=== PATIENT | female | born 1985 | race Caucasian/White ===

== ENCOUNTER 2018-12-09 17:41 | Emergency (ER) | payer OTHER, SELFPAY ==
[2018-12-09 17:42] VITALS: BP 140/94; PULSE 92; RESP 18; TEMP 36.9; O2SAT 99
--- NOTE | 2018-12-09 18:09 | ED.EYEPROB ---
HPI - Eye Problem General Chief complaint: Eye Problems Stated complaint: RT EYE PAIN PLUGGED Time Seen by Provider: 12/09/18 17:52 Source: patient and family Mode of arrival: ambulatory Limitations: no limitations History of Present Illness HPI Narrative: 33-year-old female nonsmoker with extensive history of clogged tear duct presents to the emergency department for help in managing this current episode. The patient has had annual episodes of clogged tear ducts over the past 12 years and had previously been managed by an career development specialist in [place]. On a few occasions she has required the flushing of the duct by the specialist as well as antibiotics but this time around her symptoms do not seem to be improving. They have been present for the past week or so. She was seen and evaluated in the emergency department at [facility] and had attempts at massaged and instructions to use warm compresses and was prescribed 1st amoxicillin and then Augmentin. She was then seen as an outpatient by Ophthalmology in [place] whom said there was nothing they could do to help her. She presents here stating that it has never lasted this long and she just needs some help. She has minimal tearing in the right eye but denies any visual change. She states it hurts anterior to her right eye with extraocular motion and denies over and over again that it hurts behind her eye MD chief complaint: eye pain Onset (ago): day(s) Onset description: gradual Duration: constant Location: right eye Place: home Mechanism: none Severity: mild Severity scale (1-10): 5 If Pain, Quality: aching Associated symptoms: none Treatments Prior to Arrival: none Related Data Patient tetanus UTD: Yes Home Medications Medication Instructions Recorded Confirmed [id number]-[id number] 1 tab PO PRN PRN #0 08/15/16 [Excedrin Migraine] ibuprofen 200 mg PO PRN PRN #0 08/15/16 [dontae-seltzer] #0 11/17/16 guaifenesin [Mucinex] 1,200 mg PO Q12HP PRN #0 11/17/16 Previous Rx's Medication Instructions Recorded amoxicillin-pot clavulanate 875 mg PO BID #20 tab 11/17/16 [Augmentin] codeine-guaifenesin 5 ml PO QHS #60 ml 11/17/16 hydrocodone-acetaminophen 1 tab PO Q4-6H PRN #10 tab 12/09/18 Allergies Allergy/AdvReac Type Severity Reaction Status Date / Time No Known Drug Allergies Allergy Verified 12/09/18 18:39 Review of Systems Constitutional Denies chills, Denies fever(s), Denies lethargy and Denies weakness Eyes Denies change in vision, Denies eye discharge, Denies irritation, Denies loss of vision and Reports eye pain ENT Ears, Nose, Mouth, and Throat: Denies change in voice, Denies neck pain and Denies sore throat Cardiovascular Denies chest pain, Denies irregular heart rhythm, Denies lightheadedness, Denies palpitations, Denies dyspnea, Denies dyspnea on exertion and Denies orthopnea Respiratory Denies cough, Denies dyspnea, Denies dyspnea on exertion and Denies wheezing Gastrointestinal Gastrointestinal: Denies abdominal pain, Denies change in bowel habits, Denies diarrhea, Denies nausea and Denies vomiting Genitourinary Denies hematuria, Denies flank pain, Denies urinary incontinence and Denies urinary urgency Musculoskeletal Denies neck pain Integumentary/Breasts Denies pruritus, Denies erythema, Denies rash and Denies wounds Neurologic Denies confusion, Denies loss of vision and Denies weakness Psychiatric Denies anxiety, Denies confusion, Denies depression, Denies homicidal ideation and Denies suicidal ideation Endocrine Denies palpitations Hematologic/Lymphatic Denies easy bruising Allergic/Immunologic Denies wheezing PFSH Social History Smoking Status: Never smoker Social History Smoking Status: Never smoker Exam Narrative Exam Narrative: GEN: 33-year-old female obviously uncomfortable, and frustrated, tearful EYES: Pupils are equal, round, and reactive to light and accommodation. Extraoccular muscles are intact bilaterally. There is no subconjunctival hemorrhage or exudate. There is the redness, tenderness and mild swelling of her right tear duct and very minimal involvement the medial aspect of the upper lid. There is no drainage noted. Patient has full extraocular motion and repeatedly states she has no pain behind her eye with extraocular motion CHEST: Lungs are clear to auscultation bilaterally and free of wheezes, rales, or rhonchi. Heart rate is regular rhythm, there are no murmurs, clicks, rubs, or gallops. There is no chest wall tenderness. ABD: Abdomen is soft and nontender. There is no guarding or rebound. Bowel sounds are normal in all 4 quadrants. There is no mass or organomegaly. EXT: Full painless ROM of all extremities with no loss of sensation or strength. SKIN: Warm, pink, and dry. No erythema or rash Initial Vital Signs Initial Vital Signs: Vital Signs Temperature 98.5 F 12/09/18 17:42 Pulse Rate 92 H 12/09/18 17:42 Respiratory Rate 18 12/09/18 17:42 Blood Pressure 140/94 H 12/09/18 17:42 Pulse Oximetry 99 12/09/18 17:42 Course Reevaluation(s) Reevaluation #1: Had extensive discussion with this patient about the emergency department approach to this being warm compresses, pain control and antibiotics with Ophthalmology referral. I have notified them that we have been told by our ophthalmology group today will see our patients in follow-up the following day. I do work tomorrow during the day shift and I told them that if they are unable to get in to come back here and I will see back in to help Vital Signs - 8 hr 12/09/18 17:42 Temperature 98.5 F Pulse Rate 92 H Respiratory Rate 18 Blood Pressure 140/94 H Pulse Oximetry 99 MDM - Eye Problem MDM Narrative Medical decision making narrative: Patient's tenderness is over the right tear duct. There is inflammation and erythema without any evidence to suggest orbital cellulitis. 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 They have assured the Emergency Department that they will see our patients in follow up the next day without official referral. I work tomorrow and if you have trouble please come back to the ED and tell me if you have trouble. *Return to ER if you should have any new, worsening or concerning symptoms Prescriptions: New hydrocodone-acetaminophen 5-325 mg tablet 1 tab PO Q4-6H PRN (Reason: pain) Qty: 10 RF: 0 No Action ibuprofen 200 MG capsule 200 mg PO PRN PRNQty: 0 RF: 0 [id number] [Excedrin Migraine] 1 EACH tablet 1 tab PO PRN PRNQty: 0 RF: 0 guaifenesin [Mucinex] 1,200 MG tablet extended release 12hr 1,200 mg PO Q12HP PRNQty: 0 RF: 0 [dontae-seltzer] Qty: 0 RF: 0 amoxicillin-pot clavulanate [Augmentin] 875 MG/125 MG tablet 875 mg PO BID Qty: 20 RF: 0 codeine-guaifenesin 100 MG/10 MG liquid 5 ml PO QHS Qty: 60 RF: 0 Referrals: Glen Hameed MD [Physician] -
== END 2018-12-09 18:40 | disposition home or self-care (01) ==
PROVIDERS: Emergency Provider Emergency Medicine
DX: H04.309 Unspecified dacryocystitis of unspecified lacrimal passage (principal)
CPT/HCPCS: 99282

== ENCOUNTER → 2019-04-27 11:13 | Outpatient (CLI) | payer OTHER, SELFPAY ==
--- NOTE | 2019-04-27 11:15 | DI.RAD.S_ITS ---
PROCEDURE: XR KNEE LT 3V INDICATIONS: l knee pain TECHNIQUE: 3 views of the knee were acquired. COMPARISON: None. FINDINGS: Bones: No fractures or dislocations. No suspicious bony lesions. Soft tissues: No joint effusion. No suspicious soft tissue calcifications. IMPRESSION: No acute left knee fracture or dislocation. Dictated by: Vipin Araiza M.D. on 04/27/2019 at 11:00 Approved by: Vipin Araiza M.D. on 04/27/2019 at 11:01
== END ==
PROVIDERS: Visit Provider Physician Assistant
DX: M25.562 Pain in left knee (principal)
CPT/HCPCS: 73562

== ENCOUNTER → 2022-04-10 09:00 | Outpatient (CLI) | payer OTHER, SELFPAY ==
--- NOTE | 2022-04-10 09:01 | DI.RAD.S_ITS ---
PROCEDURE: XR ANKLE RT MIN 3V INDICATIONS: ankle pain TECHNIQUE: 3 views of the ankle were acquired. COMPARISON: None. FINDINGS: Bones: No fractures or dislocations. Ankle mortise is normally aligned. No suspicious bony lesions. Soft tissues: No tibiotalar joint effusion. Achilles tendon appears normal. IMPRESSION: No acute osseous abnormality. Dictated by: Miquel Lozano M.D. on 04/10/2022 at 9:26 Approved by: Miquel Lozano M.D. on 04/10/2022 at 9:29
== END ==
PROVIDERS: Referring Provider Physician Assistant; Visit Provider Physician Assistant
DX: M25.571 Pain in right ankle and joints of right foot (principal)
CPT/HCPCS: 73610